=== PATIENT | male | born 2000 ===

== ENCOUNTER 2024-04-13 10:24 | Emergency (ER) | payer SELFPAY ==
[2024-04-13] MEDS ORDERED: Ibuprofen 200 MG TAB ONE (12:29)
[2024-04-13] MEDS ORDERED: Dexamethasone 10 MG/ML VIAL ONE (12:29)
== END 2024-04-13 13:16 | disposition home or self-care (01) ==
LOC: ERS 10:24
DX: J45.901 Unspecified asthma with (acute) exacerbation (principal); Z87.891 Personal history of nicotine dependence
CPT/HCPCS: 71045; 87081; 87428; 87430; J1100